=== PATIENT | female | born 1955 | race Caucasian/White ===

== ENCOUNTER 2022-06-27 13:33 | Inpatient (IN) | payer MEDICARE ==
[2022-06-27] MEDS ORDERED: Sodium Chloride 0.9% 2.5 ML Syringe FLUSH PRN (14:43)
[2022-06-27] MEDS ORDERED: Sodium Chloride 0.9% 10 ML Syringe FLUSH PRN (14:43)
[2022-06-27 15:36] LABS: CARBON DIOXIDE,CO2 22.8 mmol/L (21.0-32.0); POTASSIUM,K 3.5 mmol/L (3.5-5.1)
[2022-06-27 15:50] LABS: CORONAVIRUS COVID-19 NAA NEGATIVE (NEGATIVE); INFLUENZA A NAA POSITIVE (NEGATIVE); INFLUENZA B NAA NEGATIVE (NEGATIVE); RESPIRATORY SYNCYTIAL VIR NAA NEGATIVE (NEGATIVE)
[2022-06-27] MEDS: Sodium Chloride 0.9% 1,000 ML IV SCH (16:18)
[2022-06-27] MEDS ORDERED: Lactated Ringers 1,000 ML IV SCH (18:30)
[2022-06-27] MEDS: Pantoprazole 40 MG in Sodium Chloride 0.9% 10 ML IVPUSH SCH (18:47)
[2022-06-27] MEDS: Oseltamivir 75 MG Cap PO SCH ×2 (18:47→21:15)
[2022-06-27] MEDS: Morphine 2 MG/ML SYRINGE IVPUSH PRN (20:52)
[2022-06-27] MEDS: Enoxaparin 100 MG/1 ML Syringe SUBCUT SCH (20:52)
[2022-06-28] MEDS: Sodium Chloride 0.9% 1,000 ML IV SCH (01:54)
[2022-06-28 07:04] LABS: CARBON DIOXIDE,CO2 20.2 mmol/L (21.0-32.0); POTASSIUM,K 3.4 mmol/L (3.5-5.1)
[2022-06-28] MEDS: Ondansetron 4 MG/2 ML SDV IVPUSH PRN (08:24)
[2022-06-28] MEDS: Enoxaparin 100 MG/1 ML Syringe SUBCUT SCH ×2 (08:24→20:40)
[2022-06-28] MEDS: Oseltamivir 75 MG Cap PO SCH ×2 (08:24→20:40)
[2022-06-28] MEDS ORDERED: Polyethylene Glycol 3350 Powder 17 GM Packet PO PRN (09:15)
[2022-06-28] MEDS ORDERED: Acetaminophen 325 MG Tab PO PRN (09:15)
[2022-06-28] MEDS ORDERED: Potassium Chloride 20 MEQ Tab.ER PO ONE (09:30)
[2022-06-28] MEDS ORDERED: Lactated Ringers 1,000 ML IV ONE ×3 (10:45→18:45)
[2022-06-28] MEDS: Morphine 2 MG/ML SYRINGE IVPUSH PRN (17:42)
[2022-06-28] MEDS: Pantoprazole 40 MG in Sodium Chloride 0.9% 10 ML IVPUSH SCH (17:48)
[2022-06-28 18:15] LABS: CARBON DIOXIDE,CO2 20.9 mmol/L (21.0-32.0); POTASSIUM,K 4.3 mmol/L (3.5-5.1)
[2022-06-28] MEDS: Lactated Ringers 1,000 ML IV SCH (19:59)
[2022-06-29] MEDS: Lactated Ringers 1,000 ML IV SCH ×5 (01:08→22:09)
[2022-06-29] MEDS: Morphine 2 MG/ML SYRINGE IVPUSH PRN ×3 (02:09→18:20)
[2022-06-29] MEDS: Levothyroxine 125 MCG Tab PO SCH (06:29)
[2022-06-29 07:21] LABS: CARBON DIOXIDE,CO2 22.5 mmol/L (21.0-32.0); POTASSIUM,K 4.5 mmol/L (3.5-5.1)
[2022-06-29] MEDS: Enoxaparin 100 MG/1 ML Syringe SUBCUT SCH (09:00)
[2022-06-29] MEDS ORDERED: Lactated Ringers 1,000 ML IV SCH (09:45)
[2022-06-29] MEDS: Oseltamivir 75 MG Cap PO SCH ×2 (09:58→19:59)
[2022-06-29] MEDS: Albuterol/Ipratropium 3.0-0.5 MG/3 ML Neb Soln NEB PRN ×2 (16:22→22:09)
[2022-06-29 17:11] LABS: CARBON DIOXIDE,CO2 22.3 mmol/L (21.0-32.0); POTASSIUM,K 4.3 mmol/L (3.5-5.1)
[2022-06-29] MEDS ORDERED: Furosemide 40 MG/4 ML VIAL IVPUSH ONE (17:46)
[2022-06-29] MEDS: Pantoprazole 40 MG in Sodium Chloride 0.9% 10 ML IVPUSH SCH (18:08)
[2022-06-29] MEDS ORDERED: Heparin Sodium 5,000 Units/ML Vial SUBCUT SCH (20:00)
[2022-06-30] MEDS: Lactated Ringers 1,000 ML IV SCH ×4 (02:17→17:44)
[2022-06-30] MEDS: Morphine 2 MG/ML SYRINGE IVPUSH PRN ×2 (02:21→18:28)
[2022-06-30] MEDS ORDERED: Furosemide 40 MG/4 ML VIAL IVPUSH ONE (03:02)
[2022-06-30] MEDS: Levothyroxine 125 MCG Tab PO SCH (06:36)
[2022-06-30] MEDS ORDERED: Lactated Ringers 1,000 ML IV SCH (06:50)
[2022-06-30 08:01] LABS: CARBON DIOXIDE,CO2 24.7 mmol/L (21.0-32.0); POTASSIUM,K 3.8 mmol/L (3.5-5.1)
[2022-06-30] MEDS ORDERED: Magnesium Sulfate/Water 2 GM in Premix Bag 1 BAG IV ONE (08:30)
[2022-06-30] MEDS: Oseltamivir Phosphate 30 MG Capsule PO SCH (09:05)
[2022-06-30] MEDS: Albuterol/Ipratropium 3.0-0.5 MG/3 ML Neb Soln NEB SCH ×2 (11:14→20:48)
[2022-06-30] MEDS: Pantoprazole 40 MG in Sodium Chloride 0.9% 10 ML IVPUSH SCH (18:28)
[2022-07-01] MEDS: Lactated Ringers 1,000 ML IV SCH ×3 (00:21→17:58)
[2022-07-01] MEDS: Morphine 2 MG/ML SYRINGE IVPUSH PRN (04:50)
[2022-07-01] MEDS: Levothyroxine 125 MCG Tab PO SCH ×2 (06:08→06:34)
[2022-07-01] MEDS: Oseltamivir Phosphate 30 MG Capsule PO SCH (08:50)
[2022-07-01] MEDS: Albuterol/Ipratropium 3.0-0.5 MG/3 ML Neb Soln NEB SCH ×2 (08:50→21:21)
[2022-07-01 08:53] LABS: CARBON DIOXIDE,CO2 26.9 mmol/L (21.0-32.0); POTASSIUM,K 3.4 mmol/L (3.5-5.1)
[2022-07-01] MEDS ORDERED: Potassium Chloride 20 MEQ Tab.ER PO ONE (09:24)
[2022-07-01] MEDS ORDERED: Magnesium Oxide 400 MG Tab PO ONE (09:25)
[2022-07-01] MEDS ORDERED: Lactated Ringers 1,000 ML IV SCH (16:00)
[2022-07-01] MEDS ORDERED: Furosemide 40 MG/4 ML VIAL IVPUSH ONE (16:50)
[2022-07-01] MEDS: Albuterol/Ipratropium 3.0-0.5 MG/3 ML Neb Soln NEB PRN (16:58)
[2022-07-01] MEDS: Pantoprazole 40 MG in Sodium Chloride 0.9% 10 ML IVPUSH SCH (17:37)
[2022-07-01] MEDS: oxyCODONE 5 MG Tab PO PRN (19:47)
[2022-07-02] MEDS: Lactated Ringers 1,000 ML IV SCH ×4 (00:27→23:26)
[2022-07-02] MEDS: Levothyroxine 125 MCG Tab PO SCH ×2 (06:20→06:44)
[2022-07-02] MEDS: Oseltamivir Phosphate 30 MG Capsule PO SCH ×2 (08:40→20:35)
[2022-07-02] MEDS: Lisinopril 10 MG Tab PO SCH (08:40)
[2022-07-02 08:43] LABS: CARBON DIOXIDE,CO2 30.4 mmol/L (21.0-32.0); POTASSIUM,K 3.1 mmol/L (3.5-5.1)
[2022-07-02] MEDS: oxyCODONE 5 MG Tab PO PRN (08:44)
[2022-07-02] MEDS ORDERED: Potassium Chloride 20 MEQ Tab.ER PO ONE (08:54)
[2022-07-02] MEDS ORDERED: Magnesium Oxide 400 MG Tab PO ONE (08:59)
[2022-07-02] MEDS ORDERED: NS with KCl 40mEq 1,000 ML IV ONE (09:00)
[2022-07-02] MEDS: Albuterol/Ipratropium 3.0-0.5 MG/3 ML Neb Soln NEB SCH ×2 (09:39→20:35)
[2022-07-02] MEDS: Phosphorus #1 250 MG Tab PO SCH ×3 (13:34→23:24)
[2022-07-02 14:41] LABS: CARBON DIOXIDE,CO2 33.8 mmol/L (21.0-32.0); POTASSIUM,K 3.8 mmol/L (3.5-5.1)
[2022-07-02] MEDS: Pantoprazole 40 MG in Sodium Chloride 0.9% 10 ML IVPUSH SCH (17:55)
[2022-07-02] MEDS: Ondansetron 4 MG/2 ML SDV IVPUSH PRN (23:29)
[2022-07-03] MEDS: Lactated Ringers 1,000 ML IV SCH ×3 (06:02→20:49)
[2022-07-03] MEDS: Levothyroxine 125 MCG Tab PO SCH ×2 (06:04→06:39)
[2022-07-03] MEDS: Phosphorus #1 250 MG Tab PO SCH ×4 (06:04→23:43)
[2022-07-03 07:29] LABS: CARBON DIOXIDE,CO2 30.4 mmol/L (21.0-32.0); POTASSIUM,K 3.5 mmol/L (3.5-5.1)
[2022-07-03] MEDS ORDERED: Magnesium Sulfate/Water 2 GM in Premix Bag 1 BAG IV ONE (08:10)
[2022-07-03] MEDS: Oseltamivir Phosphate 30 MG Capsule PO SCH ×2 (08:44→20:49)
[2022-07-03] MEDS: Lisinopril 10 MG Tab PO SCH (08:44)
[2022-07-03] MEDS ORDERED: Furosemide 40 MG/4 ML VIAL IVPUSH ONE (08:54)
[2022-07-03] MEDS: Albuterol/Ipratropium 3.0-0.5 MG/3 ML Neb Soln NEB SCH (10:34)
[2022-07-03] MEDS: cefTRIAXone 1 GM in Sodium Chloride 0.9% 50 ML IV SCH (11:22)
[2022-07-03 17:05] LABS: CARBON DIOXIDE,CO2 32.8 mmol/L (21.0-32.0); POTASSIUM,K 3.1 mmol/L (3.5-5.1)
[2022-07-03] MEDS: Pantoprazole 40 MG in Sodium Chloride 0.9% 10 ML IVPUSH SCH (17:37)
[2022-07-03] MEDS: Azithromycin 500 MG in Sodium Chloride 0.9% 250 ML IV SCH (17:40)
[2022-07-03] MEDS ORDERED: Magnesium Oxide 400 MG Tab PO ONE (17:45)
[2022-07-03] MEDS: Potassium Chloride 20 MEQ Tab.ER PO SCH ×2 (18:09→20:49)
[2022-07-03] MEDS ORDERED: Furosemide 40 MG Tab PO ONE (21:00)
[2022-07-03] MEDS ORDERED: Oseltamivir 75 MG Cap PO SCH (21:00)
[2022-07-04] MEDS: Lactated Ringers 1,000 ML IV SCH ×2 (03:28→11:50)
[2022-07-04] MEDS: Phosphorus #1 250 MG Tab PO SCH ×3 (06:33→18:15)
[2022-07-04] MEDS: Levothyroxine 125 MCG Tab PO SCH (06:33)
[2022-07-04 07:19] LABS: CARBON DIOXIDE,CO2 33.7 mmol/L (21.0-32.0); POTASSIUM,K 3.2 mmol/L (3.5-5.1)
[2022-07-04] MEDS ORDERED: Magnesium Oxide 400 MG Tab PO ONE (07:59)
[2022-07-04] MEDS: Potassium Chloride 20 MEQ Tab.ER PO SCH ×2 (09:15→21:18)
[2022-07-04] MEDS: Lisinopril 10 MG Tab PO SCH (09:16)
[2022-07-04] MEDS: Potassium Chloride 100 ML IV SCH ×2 (09:16→11:51)
[2022-07-04] MEDS: Oseltamivir Phosphate 30 MG Capsule PO SCH ×2 (09:16→21:17)
[2022-07-04] MEDS: cefTRIAXone 1 GM in Sodium Chloride 0.9% 50 ML IV SCH (11:18)
[2022-07-04] MEDS: Azithromycin 500 MG in Sodium Chloride 0.9% 250 ML IV SCH (16:32)
[2022-07-04] MEDS: Pantoprazole 40 MG in Sodium Chloride 0.9% 10 ML IVPUSH SCH (18:16)
[2022-07-04] MEDS: oxyCODONE 5 MG Tab PO PRN (21:53)
[2022-07-05] MEDS: Phosphorus #1 250 MG Tab PO SCH ×5 (00:59→23:05)
[2022-07-05] MEDS: Lactated Ringers 1,000 ML IV SCH ×2 (03:08→23:04)
[2022-07-05] MEDS: Levothyroxine 125 MCG Tab PO SCH ×2 (06:01→07:04)
[2022-07-05 07:10] LABS: CARBON DIOXIDE,CO2 30.4 mmol/L (21.0-32.0); POTASSIUM,K 3.7 mmol/L (3.5-5.1)
[2022-07-05] MEDS: Oseltamivir Phosphate 30 MG Capsule PO SCH ×2 (08:31→20:13)
[2022-07-05] MEDS: Potassium Chloride 20 MEQ Tab.ER PO SCH ×2 (08:31→20:12)
[2022-07-05] MEDS: Lisinopril 10 MG Tab PO SCH (08:31)
[2022-07-05] MEDS: cefTRIAXone 1 GM in Sodium Chloride 0.9% 50 ML IV SCH (09:41)
[2022-07-05] MEDS: oxyCODONE 5 MG Tab PO PRN (09:41)
[2022-07-05] MEDS ORDERED: Magnesium Sulfate/Water 2 GM/50 ML Premix Bag IV ONE (12:00)
[2022-07-05] MEDS ORDERED: Magnesium Sulfate/Water 2 GM in Premix Bag 1 BAG IV ONE (12:15)
[2022-07-05] MEDS ORDERED: Potassium Chloride 20 MEQ Tab.ER PO ONE (13:20)
[2022-07-05] MEDS: Azithromycin 500 MG in Sodium Chloride 0.9% 250 ML IV SCH (15:49)
[2022-07-05] MEDS: Pantoprazole 40 MG in Sodium Chloride 0.9% 10 ML IVPUSH SCH (17:47)
[2022-07-06] MEDS: Phosphorus #1 250 MG Tab PO SCH ×4 (06:15→23:00)
[2022-07-06] MEDS: Levothyroxine 125 MCG Tab PO SCH ×2 (06:15→07:18)
[2022-07-06 06:34] LABS: CARBON DIOXIDE,CO2 28.3 mmol/L (21.0-32.0); POTASSIUM,K 3.9 mmol/L (3.5-5.1)
[2022-07-06] MEDS ORDERED: Magnesium Sulfate/Water 2 GM in Premix Bag 1 BAG IV ONE (07:20)
[2022-07-06] MEDS: Potassium Chloride 20 MEQ Tab.ER PO SCH ×2 (08:25→21:23)
[2022-07-06] MEDS: Lisinopril 10 MG Tab PO SCH (08:25)
[2022-07-06] MEDS: Oseltamivir Phosphate 30 MG Capsule PO SCH ×2 (08:25→21:23)
[2022-07-06] MEDS: cefTRIAXone 1 GM in Sodium Chloride 0.9% 50 ML IV SCH (09:39)
[2022-07-06] MEDS: Azithromycin 500 MG in Sodium Chloride 0.9% 250 ML IV SCH (15:32)
[2022-07-06] MEDS: Pantoprazole 40 MG in Sodium Chloride 0.9% 10 ML IVPUSH SCH (17:39)
[2022-07-06] MEDS: Albuterol/Ipratropium 3.0-0.5 MG/3 ML Neb Soln NEB PRN (21:39)
[2022-07-06] MEDS: oxyCODONE 5 MG Tab PO PRN (23:00)
[2022-07-07] MEDS: Phosphorus #1 250 MG Tab PO SCH (06:30)
[2022-07-07] MEDS: Levothyroxine 125 MCG Tab PO SCH (06:31)
[2022-07-07] MEDS ORDERED: Polyethylene Glycol 3350 Powder 17 GM Packet PO PRN (07:20)
[2022-07-07 07:51] LABS: CARBON DIOXIDE,CO2 24.1 mmol/L (21.0-32.0)
[2022-07-07] MEDS: Oseltamivir Phosphate 30 MG Capsule PO SCH ×2 (09:16→21:01)
[2022-07-07] MEDS: Potassium Chloride 20 MEQ Tab.ER PO SCH (09:16)
[2022-07-07] MEDS: Lisinopril 10 MG Tab PO SCH (09:18)
[2022-07-07] MEDS: cefTRIAXone 1 GM in Sodium Chloride 0.9% 50 ML IV SCH (10:30)
[2022-07-07] MEDS: Piperacillin/Tazobactam 3.375 GM in Sodium Chloride 0.9% 50 ML IV SCH ×3 (12:34→23:14)
[2022-07-07] MEDS: Azithromycin 500 MG in Sodium Chloride 0.9% 250 ML IV SCH (17:48)
[2022-07-07] MEDS: Pantoprazole 40 MG Tab.CR PO SCH (17:49)
[2022-07-07] MEDS: Lactated Ringers 1,000 ML IV SCH (18:29)
[2022-07-07] MEDS: oxyCODONE 5 MG Tab PO PRN (21:53)
[2022-07-08] MEDS: Piperacillin/Tazobactam 3.375 GM in Sodium Chloride 0.9% 50 ML IV SCH (06:52)
[2022-07-08 07:50] LABS: CARBON DIOXIDE,CO2 23.6 mmol/L (21.0-32.0); POTASSIUM,K 3.7 mmol/L (3.5-5.1)
[2022-07-08] MEDS: Levothyroxine 125 MCG Tab PO SCH (07:50)
[2022-07-08] MEDS: Lisinopril 10 MG Tab PO SCH (08:52)
[2022-07-08] MEDS: Vancomycin 125 MG Cap PO SCH ×4 (10:39→23:40)
[2022-07-08] MEDS: Lactated Ringers 1,000 ML IV SCH (15:58)
[2022-07-08] MEDS: Pantoprazole 40 MG Tab.CR PO SCH (17:01)
[2022-07-08] MEDS: oxyCODONE 5 MG Tab PO PRN (20:58)
[2022-07-09] MEDS: Levothyroxine 125 MCG Tab PO SCH ×2 (06:16→06:52)
[2022-07-09] MEDS: Vancomycin 125 MG Cap PO SCH ×4 (06:16→23:09)
[2022-07-09 08:03] LABS: CARBON DIOXIDE,CO2 24.2 mmol/L (21.0-32.0); POTASSIUM,K 3.3 mmol/L (3.5-5.1)
[2022-07-09] MEDS: Lisinopril 10 MG Tab PO SCH (08:39)
[2022-07-09] MEDS ORDERED: Potassium Chloride 20 MEQ Tab.ER PO ONE (08:52)
[2022-07-09] MEDS: oxyCODONE 5 MG Tab PO PRN (21:12)
[2022-07-10] MEDS: Levothyroxine 125 MCG Tab PO SCH (06:30)
[2022-07-10] MEDS: Vancomycin 125 MG Cap PO SCH ×2 (06:30→11:34)
[2022-07-10 08:04] LABS: CARBON DIOXIDE,CO2 24.8 mmol/L (21.0-32.0); POTASSIUM,K 3.8 mmol/L (3.5-5.1)
[2022-07-10] MEDS: Lisinopril 10 MG Tab PO SCH (08:50)
[2022-07-10] MEDS ORDERED: Magnesium Sulfate/Water 2 GM in Premix Bag 1 BAG IV ONE (11:07)
[2022-07-10] MEDS ORDERED: Magnesium Oxide 400 MG Tab PO ONE (11:29)
== END 2022-07-10 13:00 | disposition home health service (06) | DRG 564 ==
LOC: MW.ED 13:33 → MW.MS 18:23
PROVIDERS: ADMIT Student in an Organized Health Care Education/Training Program; ATTEND Student in an Organized Health Care Education/Training Program
DX: T79.6XXA Traumatic ischemia of muscle, initial encounter (principal); J10.00 Influenza due to other identified influenza virus with unspecified type of pneumonia; N17.9 Acute kidney failure, unspecified; N39.0 Urinary tract infection, site not specified; A04.72 Enterocolitis due to Clostridium difficile, not specified as recurrent; D64.9 Anemia, unspecified; F17.200 Nicotine dependence, unspecified, uncomplicated; Z20.822 Contact with and (suspected) exposure to COVID-19; I10 Essential (primary) hypertension; E61.1 Iron deficiency; M79.81 Nontraumatic hematoma of soft tissue; Z79.899 Other long term (current) drug therapy
CPT/HCPCS: 0241U; 36415; 36430; 36600; 51702; 70450; 70450-26; 71045; 71045-26; 74176; 74176-26; 80048; 80053; 81001; 82550; 82728; 82803; 83550; 83605; 83735; 84100; 84484; 85014; 85018; 85025; 85610; 85730; 86850; 86900; 86901; 86920; 87040; 87045; 87046; 87086; 87324; 87328; 87329; 87449; 87641; 87899; 93005; 93306; 94640; 97110-GP; 97163-GP; 97530-GP; 99221; 99231; 99232; 99239; A9270-GY; C9113; J0456; J0696; J1650; J1940; J2270; J2405; J2543; J3475; J3480; J3490; J7030; J7050; J7120; J7620-GY; P9016; Q0138

== ENCOUNTER 2022-11-02 10:06 | Inpatient (IN) | payer MEDICARE ==
[2022-11-02] MEDS ORDERED: Morphine 4 MG/ML Syringe IVPUSH ONE ×2 (10:28→12:50)
[2022-11-02] MEDS ORDERED: Ondansetron 4 MG/2 ML SDV IVPUSH ONE (10:28)
[2022-11-02] MEDS ORDERED: Sodium Chloride 0.9% 1,000 ML IV ONE ×2 (10:28→11:58)
[2022-11-02 11:42] LABS: BLOOD UREA NITROGEN,BUN 20 mg/dL (7.0-18.0); CARBON DIOXIDE,CO2 26.1 mmol/L (21.0-32.0); CHLORIDE,CL 97 mmol/L (98-107); GLUCOSE RANDOM 130 mg/dL (74-106); POTASSIUM,K 3.2 mmol/L (3.5-5.1); SODIUM,NA 134 mmol/L (136-145)
[2022-11-02 11:52] LABS: ESTIMATED GFR 81 mL/min (>60)
[2022-11-02] MEDS ORDERED: Piperacillin/Tazobactam 3.375 GM in Sodium Chloride 0.9% 100 ML IV ONE (12:49)
[2022-11-02] MEDS ORDERED: Iopamidol 755 MG/ML 500 ML Multipack Bottle IVPUSH ONE (13:34)
[2022-11-02 15:18] LABS: BILIRUBIN INDIRECT 1.9
[2022-11-02] MEDS ORDERED: Docusate Sodium 100 MG Cap PO PRN (16:13)
[2022-11-02] MEDS ORDERED: Ondansetron 4 MG/2 ML SDV IVPUSH PRN (16:13)
[2022-11-02] MEDS ORDERED: Morphine 2 MG/ML SYRINGE IVPUSH PRN (16:13)
[2022-11-02] MEDS ORDERED: Sodium Chloride 0.9% 10 ML Syringe FLUSH PRN (16:15)
[2022-11-02] MEDS ORDERED: Sodium Chloride 0.9% 2.5 ML Syringe FLUSH PRN (16:15)
[2022-11-02] MEDS ORDERED: Magnesium Sulfate/Water 2 GM in Premix Bag 1 BAG IV ONE (16:45)
[2022-11-02] MEDS: Sodium Chloride 0.9% 1,000 ML IV SCH ×2 (17:18→23:41)
[2022-11-02] MEDS: Pantoprazole 40 MG in Sodium Chloride 0.9% 10 ML IVPUSH SCH (17:20)
[2022-11-02] MEDS: Potassium Chloride 20 MEQ in Premix Bag 1 BAG IV SCH ×2 (18:28→21:50)
[2022-11-02] MEDS ORDERED: diphenhydrAMINE 25 MG Cap PO ONE (22:57)
[2022-11-03] MEDS: Piperacillin/Tazobactam 3.375 GM in Sodium Chloride 0.9% 100 ML IV SCH ×5 (00:14→23:29)
[2022-11-03] MEDS ORDERED: Sodium Chloride 0.9% 500 ML IV ONE (01:29)
[2022-11-03] MEDS: Sodium Chloride 0.9% 1,000 ML IV SCH ×4 (04:00→19:32)
[2022-11-03 07:19] LABS: CARBON DIOXIDE,CO2 24.2 mmol/L (21.0-32.0); POTASSIUM,K 3.3 mmol/L (3.5-5.1)
[2022-11-03] MEDS ORDERED: diphenhydrAMINE 25 MG Cap PO PRN (09:30)
[2022-11-03] MEDS: Pantoprazole 40 MG in Sodium Chloride 0.9% 10 ML IVPUSH SCH (16:17)
[2022-11-04] MEDS: Sodium Chloride 0.9% 1,000 ML IV SCH ×2 (02:10→09:15)
[2022-11-04] MEDS: Levothyroxine 75 MCG Tab PO SCH ×2 (06:06→07:50)
[2022-11-04] MEDS: Piperacillin/Tazobactam 3.375 GM in Sodium Chloride 0.9% 100 ML IV SCH ×3 (06:07→17:48)
[2022-11-04 06:35] LABS: CARBON DIOXIDE,CO2 24.6 mmol/L (21.0-32.0); POTASSIUM,K 3.3 mmol/L (3.5-5.1)
[2022-11-04] MEDS: Potassium Chloride 20 MEQ Tab.ER PO SCH ×2 (08:23→15:47)
[2022-11-04] MEDS: Phosphorus #1 250 MG Tab PO SCH ×3 (09:13→17:48)
[2022-11-04] MEDS: hydrOXYzine HCl 25 MG Tab PO PRN ×2 (09:14→16:46)
[2022-11-04] MEDS: Heparin Sodium 5,000 Units/ML Vial SUBCUT SCH ×2 (10:19→21:12)
[2022-11-04] MEDS: Pantoprazole 40 MG in Sodium Chloride 0.9% 10 ML IVPUSH SCH (15:47)
[2022-11-05] MEDS: Piperacillin/Tazobactam 3.375 GM in Sodium Chloride 0.9% 100 ML IV SCH ×5 (01:34→23:22)
[2022-11-05] MEDS: hydrOXYzine HCl 25 MG Tab PO PRN ×3 (01:35→19:57)
[2022-11-05] MEDS: Phosphorus #1 250 MG Tab PO SCH ×2 (01:35→06:19)
[2022-11-05] MEDS: Levothyroxine 88 MCG Tab PO SCH ×2 (06:19→07:39)
[2022-11-05 09:05] LABS: CARBON DIOXIDE,CO2 25.3 mmol/L (21.0-32.0); POTASSIUM,K 3.5 mmol/L (3.5-5.1)
[2022-11-05] MEDS: Potassium Chloride 20 MEQ Tab.ER PO SCH ×2 (09:08→16:12)
[2022-11-05] MEDS: Heparin Sodium 5,000 Units/ML Vial SUBCUT SCH ×3 (09:09→20:44)
[2022-11-05] MEDS: Acidophilus with Citrus Pectin/L.acidophilus Tab PO SCH (11:26)
[2022-11-05] MEDS: Pantoprazole 40 MG in Sodium Chloride 0.9% 10 ML IVPUSH SCH (16:12)
[2022-11-06] MEDS: Piperacillin/Tazobactam 3.375 GM in Sodium Chloride 0.9% 100 ML IV SCH (06:04)
[2022-11-06] MEDS: Levothyroxine 88 MCG Tab PO SCH ×2 (06:04→06:33)
[2022-11-06 06:05] LABS: CARBON DIOXIDE,CO2 27.4 mmol/L (21.0-32.0); POTASSIUM,K 3.8 mmol/L (3.5-5.1)
[2022-11-06] MEDS: hydrOXYzine HCl 25 MG Tab PO PRN (06:07)
[2022-11-06] MEDS: Potassium Chloride 20 MEQ Tab.ER PO SCH (08:18)
[2022-11-06] MEDS: Acidophilus with Citrus Pectin/L.acidophilus Tab PO SCH (08:18)
[2022-11-06] MEDS ORDERED: Levofloxacin 750 MG Tab PO SCH (08:30)
[2022-11-06] MEDS: Heparin Sodium 5,000 Units/ML Vial SUBCUT SCH (09:20)
== END 2022-11-06 14:00 | disposition home or self-care (01) | DRG 919 ==
LOC: MW.ED 10:06 → MW.MS 16:03
PROVIDERS: ADMIT Hospitalist; ATTEND Hospitalist
DX: T85.79XA Infection and inflammatory reaction due to other internal prosthetic devices, implants and grafts, initial encounter (principal); K85.80 Other acute pancreatitis without necrosis or infection; C25.9 Malignant neoplasm of pancreas, unspecified; R78.81 Bacteremia; F17.210 Nicotine dependence, cigarettes, uncomplicated; E86.0 Dehydration; I95.9 Hypotension, unspecified; E03.9 Hypothyroidism, unspecified; M19.90 Unspecified osteoarthritis, unspecified site; B96.20 Unspecified Escherichia coli [E. coli] as the cause of diseases classified elsewhere; D64.9 Anemia, unspecified; E80.6 Other disorders of bilirubin metabolism; Y83.8 Other surgical procedures as the cause of abnormal reaction of the patient, or of later complication, without mention of misadventure at the time of the procedure; Z98.890 Other specified postprocedural states; Z79.890 Hormone replacement therapy
CPT/HCPCS: 36415; 71045; 71045-26; 74177; 74177-26; 80053; 81001; 82247; 82248; 83605; 83690; 83735; 83880; 84100; 84484; 85025; 87040; 87077; 87086; 87186; 93005; 99222; 99232; 99238; A9270-GY; C9113; J1644; J2270; J2405; J2543; J3475; J3480; J3490; J7030; Q9967

== ENCOUNTER 2022-12-04 06:44 | Day surgery (SDC) | payer MEDICARE ==
[~2022-12-04 06:44] MED LIST: Lactated Ringers 1,000 ML IV SCH
[2022-12-04] MEDS ORDERED: Ondansetron 4 MG/2 ML SDV ONE (06:51)
[2022-12-04] MEDS ORDERED: Lidocaine 2% 5 ML SDV ONE (06:51)
[2022-12-04] MEDS ORDERED: fentaNYL 100 MCG/2 ML SDV ONE (06:52)
[2022-12-04] MEDS ORDERED: Propofol 200 MG/20 ML SDV ONE (06:52)
[2022-12-04] MEDS ORDERED: Metoclopramide 10 MG/2 ML SDV IVPUSH PRN (06:58)
[2022-12-04] MEDS ORDERED: Naloxone 0.4 MG/ML SDV IVPUSH PRN (06:58)
[2022-12-04] MEDS ORDERED: droPERidol 5 MG/2 ML SDV IVPUSH PRN (06:58)
[2022-12-04] MEDS ORDERED: fentaNYL 50 MCG/ML SDV IVPUSH PRN (06:58)
[2022-12-04] MEDS ORDERED: Ondansetron 4 MG/2 ML SDV IVPUSH PRN (06:58)
[2022-12-04] MEDS ORDERED: Morphine 2 MG/ML SYRINGE IVPUSH PRN (06:58)
[2022-12-04] MEDS ORDERED: Albuterol 0.083% 2.5 MG/3 ML Neb Soln NEB PRN (06:58)
[2022-12-04] MEDS ORDERED: HYDROmorphone 1 MG/ML Syringe IVPUSH PRN (06:58)
[2022-12-04 07:11] LABS: BASOPHILS ABSOLUTE AUTO 0.1 K/uL (0.0-0.1); BASOPHILS PERCENT AUTO 0.9 % (0.0-1.5); EOSINOPHILS ABSOLUTE AUTO 0.3 K/uL (0.0-0.7); EOSINOPHILS PERCENT AUTO 3.3 % (0.0-7.0); HEMATOCRIT 35.3 % (36.0-46.0); HEMOGLOBIN 11.7 g/dL (12.0-16.0); LYMPHOCYTES ABSOLUTE AUTO 3.3 K/uL (0.6-2.4); LYMPHOCYTES PERCENT AUTO 35.8 % (16.0-40.0); MEAN CORPUSCULAR HGB CONC 33.1 g/dL (31.0-37.0); MEAN CORPUSCULAR VOLUME 93.6 fL (80.0-98.0); MONOCYTES ABSOLUTE AUTO 0.8 K/uL (0.0-0.8); MONOCYTES PERCENT AUTO 8.3 % (0.0-15.0); NEUTROPHILS ABSOLUTE AUTO 4.8 K/uL (1.4-5.7); NEUTROPHILS PERCENT AUTO 51.7 % (48.0-80.0); NRBC ABSOLUTE 0 K/uL; PLATELET COUNT,PLT 210 K/uL (150-400); RED BLOOD CELL COUNT 3.77 M/uL (4.30-5.90); WHITE BLOOD CELL COUNT,WBC 9.23 K/uL (4.0-11.0)
[2022-12-04] MEDS ORDERED: Heparin Sodium 100 Units/ML 3 ML Syringe ONE (07:30)
[2022-12-04] MEDS ORDERED: Lidocaine 1% 20 ML MDV ONE (07:30)
[2022-12-04] MEDS ORDERED: Bupivacaine 0.5% 30 ML SDV ONE (07:30)
[2022-12-04 07:32] LABS: A/G RATIO 0.7 (0.9-1.6); ALBUMIN 3.2 g/dL (3.4-5.0); BILIRUBIN TOTAL 1.5 mg/dL (0.2-1.0); CALCIUM 9.2 mg/dL (8.5-10.1); CARBON DIOXIDE,CO2 27.6 mmol/L (21.0-32.0); CREATININE 0.8 mg/dL (0.6-1.0); EST CRCL DRUG DOSING (CG) 58.93 mL/min; POTASSIUM,K 3.9 mmol/L (3.5-5.1); PROTEIN TOTAL,TP 7.8 g/dL (6.4-8.2)
[2022-12-04 07:52] LABS: CARCINOEMBRYONIC ANTIGEN,CEA 2.8 ng/mL
[2022-12-04] MEDS ORDERED: ePHEDrine 50 MG/ML SDV ONE (08:09)
[2022-12-04] MEDS ORDERED: Vasopressin 20 Units/1 ML MDV ONE (08:15)
[2022-12-04] MEDS ORDERED: Dexamethasone 4 MG/ML 5 ML MDV ONE (08:20)
[2022-12-04] MEDS ORDERED: ceFAZolin 1 GM Vial ONE (08:23)
[2022-12-04] MEDS ORDERED: ceFAZolin 2 GM in Sodium Chloride 0.9% 50 ML IV ONE (15:44)
== END 2022-12-04 10:25 | disposition home or self-care (01) ==
LOC: MW.SDS 06:44
PROVIDERS: ATTEND Surgery
DX: C25.0 Malignant neoplasm of head of pancreas (principal); D62 Acute posthemorrhagic anemia; I10 Essential (primary) hypertension; E03.9 Hypothyroidism, unspecified; D50.9 Iron deficiency anemia, unspecified; R17 Unspecified jaundice; Z79.890 Hormone replacement therapy; F17.210 Nicotine dependence, cigarettes, uncomplicated
CPT/HCPCS: 36415; 36561; 71045; 76000; 80053; 82378; 85025; J0690; J1100; J1642; J2704; J3010; J3490; J7120; C1788; J2405

== ENCOUNTER 2023-01-05 17:18 | Inpatient (IN) | payer MEDICARE ==
[2023-01-05] MEDS ORDERED: Sodium Chloride 0.9% 2.5 ML Syringe FLUSH PRN (17:24)
[2023-01-05] MEDS ORDERED: Sodium Chloride 0.9% 10 ML Syringe FLUSH PRN (17:24)
[2023-01-05 17:51] LABS: HEMOGLOBIN 12.1 g/dL (12.0-16.0); MEAN CORPUSCULAR HGB CONC 33.6 g/dL (31.0-37.0); MEAN CORPUSCULAR VOLUME 92.3 fL (80.0-98.0); NRBC ABSOLUTE 0 K/uL; PLATELET COUNT,PLT 243 K/uL (150-400); WHITE BLOOD CELL COUNT,WBC 23.78 K/uL (4.0-11.0)
[2023-01-05] MEDS ORDERED: Sodium Chloride 0.9% 1,000 ML IV STA (18:03)
[2023-01-05 18:19] LABS: A/G RATIO 0.9 (0.9-1.6); BILIRUBIN TOTAL 0.4 mg/dL (0.2-1.0); CALCIUM 8.1 mg/dL (8.5-10.1); CARBON DIOXIDE,CO2 20.3 mmol/L (21.0-32.0); CREATININE 0.9 mg/dL (0.6-1.0); EST CRCL DRUG DOSING (CG) 52.38 mL/min; POTASSIUM,K 2.7 mmol/L (3.5-5.1); PROTEIN TOTAL,TP 6.3 g/dL (6.4-8.2)
[2023-01-05 18:21] LABS: BAND ABSOLUTE MAN 1.7; BAND PERCENT MAN 7 %; LYMPHOCYTES ABSOLUTE MAN 1.7 (0.6-2.4); LYMPHOCYTES PERCENT MAN 7 % (16.0-40.0); MONOCYTES ABSOLUTE MAN 0.7 (0.0-0.8); MONOCYTES PERCENT MAN 3 % (0.0-15.0); SEG NEUTROPHILS ABSOLUTE MAN 19.7 (1.4-5.7); SEG NEUTROPHILS PERCENT MAN 83 % (48.0-80.0)
[2023-01-05 18:25] LABS: MAGNESIUM 1.5 mg/dL (1.8-2.4)
[2023-01-05] MEDS ORDERED: Magnesium Sulfate/Water 4 GM in Premix Bag 1 BAG IV STA (18:33)
[2023-01-05] MEDS ORDERED: Potassium Chloride 20 MEQ Tab.ER PO STA (18:35)
[2023-01-05] MEDS ORDERED: Sodium Chloride 0.9% 750 ML IV ONE (18:45)
[2023-01-05] MEDS: Potassium Chloride 20 MEQ in Premix Bag 1 BAG IV SCH ×2 (19:18→22:08)
[2023-01-05 19:21] LABS: BASE EXCESS VENOUS -4.7 (-2.0-3.0); BICARBONATE,VENOUS 23 mEq/L (23-28); PCO2 VENOUS 52 mmHG (41-51); PH,VENOUS 7.25 (7.31-7.41)
[2023-01-05 19:22] LABS: PO2 VENOUS < 30 mmHG
[2023-01-05 20:02] LABS: APPEARANCE,URINE CLEAR; BILIRUBIN,URINE NEGATIVE (NEGATIVE); COLOR,URINE YELLOW; GLUCOSE,URINE 500 mg/dL (NEGATIVE); KETONES,URINE NEGATIVE (NEGATIVE); LEUKOCYTE ESTERASE,URINE NEGATIVE (NEGATIVE); NITRITE,URINE NEGATIVE (NEGATIVE); OCCULT BLOOD,URINE NEGATIVE (NEGATIVE); PROTEIN,URINE NEGATIVE (NEGATIVE); UROBILINOGEN,URINE 0.2 EU/dL (<2.0)
[2023-01-05] MEDS ORDERED: Iopamidol 755 MG/ML 500 ML Multipack Bottle IVPUSH ONE (21:37)
[2023-01-05] MEDS ORDERED: Cefepime 2 GM in Sodium Chloride 0.9% 50 ML IV STA (23:38)
[2023-01-06] MEDS: Potassium Chloride 20 MEQ in Premix Bag 1 BAG IV SCH (00:47)
[2023-01-06] MEDS: Sodium Chloride 0.9% 1,000 ML IV SCH ×3 (01:28→19:38)
[2023-01-06] MEDS ORDERED: Sodium Chloride 0.9% 1,000 ML IV ONE (02:33)
[2023-01-06] MEDS: Norepinephrine Bit/D5W Premix 250 ML IV SCH (04:02)
[2023-01-06 04:04] LABS: HEMATOCRIT 30.7 % (36.0-46.0); HEMOGLOBIN 10.4 g/dL (12.0-16.0); MEAN CORPUSCULAR HEMOGLOBIN 31.3 pg (27.0-32.0); MEAN CORPUSCULAR HGB CONC 33.9 g/dL (31.0-37.0); MEAN CORPUSCULAR VOLUME 92.5 fL (80.0-98.0); NRBC ABSOLUTE 0 K/uL; RED BLOOD CELL COUNT 3.32 M/uL (4.30-5.90); WHITE BLOOD CELL COUNT,WBC 21.72 K/uL (4.0-11.0)
[2023-01-06 04:23] LABS: CALCIUM 7.5 mg/dL (8.5-10.1); CARBON DIOXIDE,CO2 19.3 mmol/L (21.0-32.0); CREATININE 0.7 mg/dL (0.6-1.0); EST CRCL DRUG DOSING (CG) 67.34 mL/min; POTASSIUM,K 4.5 mmol/L (3.5-5.1)
[2023-01-06 04:28] LABS: MAGNESIUM 2.6 mg/dL (1.8-2.4); PHOSPHORUS 2.5 mg/dL (2.6-4.7)
[2023-01-06] MEDS: Vancomycin 1.25 GM SDV ONE ×2 (04:30→05:09)
[2023-01-06] MEDS: Sodium Chloride 0.9% 250 ML ONE ×2 (04:31→05:08)
[2023-01-06] MEDS: VANCOmycin 1.25 GM/250 ML 250 ML IV ONE ×2 (04:32→04:34)
[2023-01-06 04:33] LABS: BAND PERCENT MAN 23 %; SEG NEUTROPHILS PERCENT MAN 69 % (48.0-80.0)
[2023-01-06 04:34] LABS: LYMPHOCYTES ABSOLUTE MAN 0.9 (0.6-2.4); LYMPHOCYTES PERCENT MAN 4 % (16.0-40.0); METAMYELOCYTE ABSOLUTE MAN 0.2; METAMYELOCYTE PERCENT MAN 1 %; MONOCYTES ABSOLUTE MAN 0.7 (0.0-0.8); MONOCYTES PERCENT MAN 3 % (0.0-15.0)
[2023-01-06 04:36] LABS: PLATELET COUNT,PLT 135 K/uL (150-400)
[2023-01-06] MEDS: Levothyroxine 75 MCG Tab PO SCH (07:38)
[2023-01-06] MEDS: Phosphorus #1 250 MG Tab PO SCH ×4 (08:48→23:51)
[2023-01-06] MEDS ORDERED: Cefepime 2 GM in Sodium Chloride 0.9% 50 ML IV SCH (11:00)
[2023-01-06] MEDS: Cefepime 2 GM in Sodium Chloride 0.9% 50 ML IV SCH ×2 (12:28→23:52)
[2023-01-06] MEDS: Heparin Sodium 5,000 Units/ML Vial SUBCUT SCH (13:32)
[2023-01-06] MEDS ORDERED: Loperamide 2 MG Cap PO ONE (23:07)
[2023-01-06] MEDS: Calcium Carbonate 500 MG Tab.Chew PO PRN (23:52)
[2023-01-07] MEDS: Heparin Sodium 5,000 Units/ML Vial SUBCUT SCH ×2 (02:09→14:16)
[2023-01-07] MEDS: Sodium Chloride 0.9% 1,000 ML IV SCH ×3 (04:50→21:37)
[2023-01-07 06:22] LABS: HEMATOCRIT 30.4 % (36.0-46.0); HEMOGLOBIN 10.1 g/dL (12.0-16.0); MEAN CORPUSCULAR HEMOGLOBIN 31.4 pg (27.0-32.0); MEAN CORPUSCULAR HGB CONC 33.2 g/dL (31.0-37.0); MEAN CORPUSCULAR VOLUME 94.4 fL (80.0-98.0); NRBC ABSOLUTE 0 K/uL; RED BLOOD CELL COUNT 3.22 M/uL (4.30-5.90); WHITE BLOOD CELL COUNT,WBC 30.01 K/uL (4.0-11.0)
[2023-01-07 06:28] LABS: CALCIUM 7.2 mg/dL (8.5-10.1); CARBON DIOXIDE,CO2 20.1 mmol/L (21.0-32.0); CREATININE 0.7 mg/dL (0.6-1.0); EST CRCL DRUG DOSING (CG) 67.34 mL/min; PHOSPHORUS 3.3 mg/dL (2.6-4.7); POTASSIUM,K 3.7 mmol/L (3.5-5.1)
[2023-01-07] MEDS: Phosphorus #1 250 MG Tab PO SCH (06:33)
[2023-01-07 07:06] LABS: PLATELET COUNT,PLT 180 K/uL (150-400); SEG NEUTROPHILS ABSOLUTE MAN 24.6 (1.4-5.7); SEG NEUTROPHILS PERCENT MAN 82 % (48.0-80.0)
[2023-01-07 07:07] LABS: BAND ABSOLUTE MAN 4.2; BAND PERCENT MAN 14 %; LYMPHOCYTES ABSOLUTE MAN 1.2 (0.6-2.4); LYMPHOCYTES PERCENT MAN 4 % (16.0-40.0)
[2023-01-07] MEDS: Levothyroxine 75 MCG Tab PO SCH (07:43)
[2023-01-07] MEDS: Pantoprazole 40 MG Tab.CR PO SCH (07:43)
[2023-01-07] MEDS: Norepinephrine Bit/D5W Premix 250 ML IV SCH (07:47)
[2023-01-07] MEDS: Cefepime 2 GM in Sodium Chloride 0.9% 50 ML IV SCH ×2 (09:51→17:34)
[2023-01-07] MEDS: Loperamide 2 MG Cap PO PRN ×5 (10:34→19:59)
[2023-01-07] MEDS ORDERED: Sodium Chloride 0.9% 1,000 ML IV ONE ×2 (10:51→16:22)
[2023-01-07] MEDS ORDERED: Acetaminophen 325 MG Tab PO PRN (16:12)
[2023-01-08] MEDS: Heparin Sodium 5,000 Units/ML Vial SUBCUT SCH (00:38)
[2023-01-08] MEDS: Calcium Carbonate 500 MG Tab.Chew PO PRN ×2 (00:42→14:16)
[2023-01-08] MEDS: Cefepime 2 GM in Sodium Chloride 0.9% 50 ML IV SCH ×3 (01:44→17:34)
[2023-01-08] MEDS: Pantoprazole 40 MG Tab.CR PO SCH (06:31)
[2023-01-08] MEDS: Levothyroxine 75 MCG Tab PO SCH (06:32)
[2023-01-08] MEDS: Sodium Chloride 0.9% 1,000 ML IV SCH ×2 (06:39→15:45)
[2023-01-08 07:25] LABS: CALCIUM 6.9 mg/dL (8.5-10.1); MAGNESIUM 1.6 mg/dL (1.8-2.4); PHOSPHORUS 2.5 mg/dL (2.6-4.7)
[2023-01-08 08:13] LABS: HEMATOCRIT 29.7 % (36.0-46.0); HEMOGLOBIN 10.1 g/dL (12.0-16.0); MEAN CORPUSCULAR HEMOGLOBIN 31.3 pg (27.0-32.0); NRBC ABSOLUTE 0 K/uL; RED BLOOD CELL COUNT 3.23 M/uL (4.30-5.90); WHITE BLOOD CELL COUNT,WBC 2.37 K/uL (4.0-11.0)
[2023-01-08 08:31] LABS: CARBON DIOXIDE,CO2 21.2 mmol/L (21.0-32.0); CREATININE 0.7 mg/dL (0.6-1.0); EST CRCL DRUG DOSING (CG) 67.34 mL/min
[2023-01-08 08:41] LABS: POTASSIUM,K 2.1 mmol/L (3.5-5.1)
[2023-01-08 08:44] LABS: PLATELET COUNT,PLT 69 K/uL (150-400)
[2023-01-08 08:47] LABS: BAND ABSOLUTE MAN 0.2; BAND PERCENT MAN 8 %; LYMPHOCYTES ABSOLUTE MAN 0.7 (0.6-2.4); LYMPHOCYTES PERCENT MAN 28 % (16.0-40.0); SEG NEUTROPHILS ABSOLUTE MAN 1.6 (1.4-5.7); SEG NEUTROPHILS PERCENT MAN 66 % (48.0-80.0)
[2023-01-08] MEDS: Loperamide 2 MG Cap PO PRN ×4 (08:47→23:48)
[2023-01-08] MEDS: Potassium Chloride 20 MEQ in Premix Bag 1 BAG IV SCH ×2 (09:16→11:25)
[2023-01-08] MEDS: Potassium Chloride 10 MEQ Tab.ER PO SCH ×2 (09:45→13:08)
[2023-01-08] MEDS: Phosphorus #1 250 MG Tab PO SCH ×3 (11:26→23:48)
[2023-01-08] MEDS ORDERED: Potassium Chloride 10 MEQ Tab.ER PO ONE (13:56)
[2023-01-09] MEDS: Cefepime 2 GM in Sodium Chloride 0.9% 50 ML IV SCH ×3 (01:07→17:21)
[2023-01-09] MEDS: Sodium Chloride 0.9% 1,000 ML IV SCH ×3 (01:10→19:48)
[2023-01-09] MEDS: Loperamide 2 MG Cap PO PRN ×3 (04:45→23:55)
[2023-01-09 06:30] LABS: HEMATOCRIT 28.4 % (36.0-46.0); HEMOGLOBIN 9.4 g/dL (12.0-16.0); MEAN CORPUSCULAR HGB CONC 33.1 g/dL (31.0-37.0); MEAN CORPUSCULAR VOLUME 93.7 fL (80.0-98.0); NRBC ABSOLUTE 0 K/uL; RED BLOOD CELL COUNT 3.03 M/uL (4.30-5.90); WHITE BLOOD CELL COUNT,WBC 1.84 K/uL (4.0-11.0)
[2023-01-09] MEDS: Phosphorus #1 250 MG Tab PO SCH ×4 (06:40→23:55)
[2023-01-09] MEDS: Levothyroxine 75 MCG Tab PO SCH (06:41)
[2023-01-09] MEDS: Pantoprazole 40 MG Tab.CR PO SCH (06:41)
[2023-01-09 06:55] LABS: CALCIUM 7.1 mg/dL (8.5-10.1); CARBON DIOXIDE,CO2 19.8 mmol/L (21.0-32.0); CREATININE 0.6 mg/dL (0.6-1.0); EST CRCL DRUG DOSING (CG) 78.57 mL/min; MAGNESIUM 1.5 mg/dL (1.8-2.4); PHOSPHORUS 2.2 mg/dL (2.6-4.7); POTASSIUM,K 3.5 mmol/L (3.5-5.1)
[2023-01-09 07:25] LABS: PLATELET COUNT,PLT 81 K/uL (150-400)
[2023-01-09 07:32] LABS: BAND ABSOLUTE MAN 0; BAND PERCENT MAN 1 %; EOSINOPHILS PERCENT MAN 1 % (0.0-7.0); LYMPHOCYTES ABSOLUTE MAN 1.3 (0.6-2.4); LYMPHOCYTES PERCENT MAN 73 % (16.0-40.0); SEG NEUTROPHILS ABSOLUTE MAN 0.4 (1.4-5.7); SEG NEUTROPHILS PERCENT MAN 24 % (48.0-80.0)
[2023-01-09 07:33] LABS: METAMYELOCYTE ABSOLUTE MAN 0; METAMYELOCYTE PERCENT MAN 1 %
[2023-01-09] MEDS: Potassium Chloride 10 MEQ Tab.ER PO SCH ×2 (09:04→12:16)
[2023-01-09] MEDS ORDERED: Magnesium Sulfate/Water 2 GM in Premix Bag 1 BAG IV ONE (10:08)
[2023-01-10] MEDS: Cefepime 2 GM in Sodium Chloride 0.9% 50 ML IV SCH ×3 (01:30→17:21)
[2023-01-10] MEDS: Loperamide 2 MG Cap PO PRN ×4 (02:50→22:22)
[2023-01-10] MEDS: Sodium Chloride 0.9% 1,000 ML IV SCH ×3 (05:00→22:22)
[2023-01-10] MEDS: Pantoprazole 40 MG Tab.CR PO SCH (06:36)
[2023-01-10] MEDS: Phosphorus #1 250 MG Tab PO SCH ×3 (06:36→17:22)
[2023-01-10] MEDS: Levothyroxine 75 MCG Tab PO SCH (06:36)
[2023-01-10 06:53] LABS: HEMATOCRIT 28.9 % (36.0-46.0); HEMOGLOBIN 9.4 g/dL (12.0-16.0); MEAN CORPUSCULAR HEMOGLOBIN 30.4 pg (27.0-32.0); MEAN CORPUSCULAR HGB CONC 32.5 g/dL (31.0-37.0); MEAN CORPUSCULAR VOLUME 93.5 fL (80.0-98.0); NRBC ABSOLUTE 0 K/uL; RED BLOOD CELL COUNT 3.09 M/uL (4.30-5.90)
[2023-01-10 07:08] LABS: A/G RATIO 0.6 (0.9-1.6); ALBUMIN 1.8 g/dL (3.4-5.0); BILIRUBIN TOTAL 0.4 mg/dL (0.2-1.0); CARBON DIOXIDE,CO2 19.2 mmol/L (21.0-32.0); CREATININE 0.5 mg/dL (0.6-1.0); EST CRCL DRUG DOSING (CG) 94.28 mL/min; MAGNESIUM 1.8 mg/dL (1.8-2.4); PHOSPHORUS 1.9 mg/dL (2.6-4.7); POTASSIUM,K 3.5 mmol/L (3.5-5.1); PROTEIN TOTAL,TP 4.8 g/dL (6.4-8.2)
[2023-01-10 07:25] LABS: PLATELET COUNT,PLT 54 K/uL (150-400)
[2023-01-10 07:26] LABS: BAND ABSOLUTE MAN 0; BAND PERCENT MAN 1 %; EOSINOPHILS PERCENT MAN 1 % (0.0-7.0); LYMPHOCYTES ABSOLUTE MAN 1.1 (0.6-2.4); LYMPHOCYTES PERCENT MAN 74 % (16.0-40.0); MONOCYTES ABSOLUTE MAN 0.1 (0.0-0.8); MONOCYTES PERCENT MAN 4 % (0.0-15.0); SEG NEUTROPHILS ABSOLUTE MAN 0.3 (1.4-5.7); SEG NEUTROPHILS PERCENT MAN 20 % (48.0-80.0)
[2023-01-10] MEDS ORDERED: Potassium Phosphates 3 mMole/ML 15 ML SDV IV ONE (08:30)
[2023-01-10] MEDS ORDERED: Potassium Phosphates 30 MMOLE in Sodium Chloride 0.9% 500 ML IV ONE (08:45)
[2023-01-10] MEDS ORDERED: Sodium Phosphate 15 mMole/5 ML SDV IV STA (08:51)
[2023-01-10 17:28] LABS: CALCIUM 7.2 mg/dL (8.5-10.1); CARBON DIOXIDE,CO2 20.3 mmol/L (21.0-32.0); CREATININE 0.5 mg/dL (0.6-1.0); EST CRCL DRUG DOSING (CG) 94.28 mL/min; POTASSIUM,K 4.1 mmol/L (3.5-5.1)
[2023-01-10] MEDS ORDERED: Sodium Chloride 0.9% 250 ML ONE (23:59)
[2023-01-11] MEDS: Phosphorus #1 250 MG Tab PO SCH ×3 (00:09→12:43)
[2023-01-11] MEDS: Cefepime 2 GM in Sodium Chloride 0.9% 50 ML IV SCH ×2 (01:37→11:05)
[2023-01-11 06:23] LABS: HEMATOCRIT 29.5 % (36.0-46.0); HEMOGLOBIN 9.7 g/dL (12.0-16.0); MEAN CORPUSCULAR HEMOGLOBIN 30.4 pg (27.0-32.0); MEAN CORPUSCULAR HGB CONC 32.9 g/dL (31.0-37.0); MEAN CORPUSCULAR VOLUME 92.5 fL (80.0-98.0); NRBC ABSOLUTE 0 K/uL; RED BLOOD CELL COUNT 3.19 M/uL (4.30-5.90); WHITE BLOOD CELL COUNT,WBC 1.44 K/uL (4.0-11.0)
[2023-01-11] MEDS: Levothyroxine 75 MCG Tab PO SCH (06:31)
[2023-01-11] MEDS: Pantoprazole 40 MG Tab.CR PO SCH (06:31)
[2023-01-11 06:39] LABS: CALCIUM 7.4 mg/dL (8.5-10.1); CARBON DIOXIDE,CO2 22.3 mmol/L (21.0-32.0); CREATININE 0.6 mg/dL (0.6-1.0); EST CRCL DRUG DOSING (CG) 78.57 mL/min; MAGNESIUM 1.6 mg/dL (1.8-2.4); PHOSPHORUS 2.3 mg/dL (2.6-4.7); POTASSIUM,K 3.8 mmol/L (3.5-5.1)
[2023-01-11 06:44] LABS: PLATELET COUNT,PLT 38 K/uL (150-400)
[2023-01-11 06:46] LABS: BAND ABSOLUTE MAN 0; BAND PERCENT MAN 1 %; BASOPHILS PERCENT MAN 2 % (0.0-1.5); EOSINOPHILS PERCENT MAN 2 % (0.0-7.0); LYMPHOCYTES ABSOLUTE MAN 1.1 (0.6-2.4); LYMPHOCYTES PERCENT MAN 75 % (16.0-40.0)
[2023-01-11 06:47] LABS: SEG NEUTROPHILS ABSOLUTE MAN 0.2 (1.4-5.7); SEG NEUTROPHILS PERCENT MAN 15 % (48.0-80.0)
[2023-01-11 06:48] LABS: METAMYELOCYTE ABSOLUTE MAN 0; METAMYELOCYTE PERCENT MAN 1 %; MONOCYTES ABSOLUTE MAN 0.1 (0.0-0.8); MONOCYTES PERCENT MAN 4 % (0.0-15.0)
[2023-01-11] MEDS: Sodium Chloride 0.9% 1,000 ML IV SCH (07:44)
[2023-01-11] MEDS: Loperamide 2 MG Cap PO PRN ×2 (07:46→13:12)
[2023-01-11] MEDS: Potassium Chloride 10 MEQ Tab.ER PO SCH ×2 (08:43→12:55)
== END 2023-01-11 13:40 | disposition home or self-care (01) | DRG 641 ==
LOC: MW.ED 17:18 → MW.ICU 23:39 → MW.MS 01-10 14:45
PROVIDERS: ADMIT Internal Medicine; ATTEND Internal Medicine
PROC: 3E033XZ Introduction of Vasopressor into Peripheral Vein, Percutaneous Approach (ICD-10-PCS; principal; 2023-01-09)
DX: E87.6 Hypokalemia (principal); E87.1 Hypo-osmolality and hyponatremia; I95.2 Hypotension due to drugs; E83.42 Hypomagnesemia; C25.0 Malignant neoplasm of head of pancreas; T45.1X5A Adverse effect of antineoplastic and immunosuppressive drugs, initial encounter; E86.0 Dehydration; Z20.822 Contact with and (suspected) exposure to COVID-19; D69.6 Thrombocytopenia, unspecified; I10 Essential (primary) hypertension; M19.90 Unspecified osteoarthritis, unspecified site; E86.9 Volume depletion, unspecified; E03.9 Hypothyroidism, unspecified; Z98.890 Other specified postprocedural states; Z79.899 Other long term (current) drug therapy; Z79.890 Hormone replacement therapy; Z87.891 Personal history of nicotine dependence
CPT/HCPCS: 36415; 71045; 71275; 74177; 80053; 81003; 82009; 82803; 83605; 83690; 83735; 83880; 84484; 85025; 87040 ×2; 93005; 96361; 96365; 96366; 96367; 96376; 99285; A9270; J3475; J3480 ×2; J3490; J7030 ×2; Q9967; 80048; 80202; 82330; 82947; 84100; 84132; 87324; 93010; 93306; 99222; 99231; 99232; 99239; 99284; J0692; J1642; J1644; J3370; J7040; J7050; U0002

== ENCOUNTER 2023-01-31 10:09 | Emergency (ER) | payer MEDICARE ==
[2023-01-31 10:35] LABS: APPEARANCE,URINE CLOUDY; BILIRUBIN,URINE NEGATIVE (NEGATIVE); COLOR,URINE YELLOW; GLUCOSE,URINE NEGATIVE (NEGATIVE); KETONES,URINE NEGATIVE (NEGATIVE); LEUKOCYTE ESTERASE,URINE TRACE (NEGATIVE); NITRITE,URINE NEGATIVE (NEGATIVE); OCCULT BLOOD,URINE SMALL (NEGATIVE); PROTEIN,URINE 30 mg/dL (NEGATIVE); UROBILINOGEN,URINE 0.2 EU/dL (<2.0)
[2023-01-31 10:48] LABS: BACTERIA,URINE 4+ (NEGATIVE); EPITHELIAL CELLS,URINE FEW (NONE-FEW); WBC,URINE 80-90 (0-5/HPF)
[2023-01-31] MEDS ORDERED: cefTRIAXone 1 GM Vial IM ONE (10:54)
[2023-01-31] MEDS ORDERED: Lidocaine 1% PF 2 ML SDV INJECT ONE (10:55)
== END 2023-01-31 11:36 | disposition home or self-care (01) ==
LOC: MW.ED 10:09
DX: N39.0 Urinary tract infection, site not specified (principal); I10 Essential (primary) hypertension; M19.90 Unspecified osteoarthritis, unspecified site; E03.9 Hypothyroidism, unspecified; Z79.899 Other long term (current) drug therapy
CPT/HCPCS: 81001; 87086; 96372; 99283; J0696; 87088; 87186; J3490

== ENCOUNTER 2023-02-23 19:13 | Emergency (ER) | payer MEDICARE ==
[2023-02-23] MEDS ORDERED: Sodium Chloride 0.9% 500 ML IV ONE (19:47)
[2023-02-23 19:48] LABS: HEMATOCRIT 24.1 % (36.0-46.0); HEMOGLOBIN 7.8 g/dL (12.0-16.0); MEAN CORPUSCULAR HEMOGLOBIN 30.4 pg (27.0-32.0); MEAN CORPUSCULAR HGB CONC 32.4 g/dL (31.0-37.0); MEAN CORPUSCULAR VOLUME 93.8 fL (80.0-98.0); NRBC ABSOLUTE 0 K/uL; RED BLOOD CELL COUNT 2.57 M/uL (4.30-5.90)
[2023-02-23 19:56] LABS: A/G RATIO 0.8 (0.9-1.6); ALBUMIN 2.5 g/dL (3.4-5.0); BILIRUBIN TOTAL 0.5 mg/dL (0.2-1.0); CALCIUM 7.9 mg/dL (8.5-10.1); CARBON DIOXIDE,CO2 24.5 mmol/L (21.0-32.0); CREATININE 0.6 mg/dL (0.6-1.0); EST CRCL DRUG DOSING (CG) 78.57 mL/min; MAGNESIUM 1.7 mg/dL (1.8-2.4); POTASSIUM,K 3.4 mmol/L (3.5-5.1); PROTEIN TOTAL,TP 5.7 g/dL (6.4-8.2)
[2023-02-23] MEDS ORDERED: Magnesium Oxide 400 MG Tab PO ONE (20:12)
[2023-02-23] MEDS ORDERED: Potassium Chloride 20 MEQ Tab.ER PO ONE (20:12)
[2023-02-23 20:22] LABS: BAND ABSOLUTE MAN 0.4; BAND PERCENT MAN 15 %; PLATELET COUNT,PLT 33 K/uL (150-400); SEG NEUTROPHILS ABSOLUTE MAN 1.4 (1.4-5.7); SEG NEUTROPHILS PERCENT MAN 52 % (48.0-80.0)
[2023-02-23 20:23] LABS: EOSINOPHILS PERCENT MAN 1 % (0.0-7.0); LYMPHOCYTES ABSOLUTE MAN 0.8 (0.6-2.4); LYMPHOCYTES PERCENT MAN 29 % (16.0-40.0); METAMYELOCYTE ABSOLUTE MAN 0; METAMYELOCYTE PERCENT MAN 1 %; MONOCYTES ABSOLUTE MAN 0.1 (0.0-0.8); MONOCYTES PERCENT MAN 2 % (0.0-15.0)
== END 2023-02-23 20:55 | disposition home or self-care (01) ==
LOC: MW.ED 19:13
DX: R55 Syncope and collapse (principal); I10 Essential (primary) hypertension
CPT/HCPCS: 36415; 80053; 83735; 84484; 85025; 93005; 96360; 99284; A9270; J7030; 93010; 99283

== ENCOUNTER 2023-10-24 09:00 | Emergency (ER) | payer MEDICARE | END 2023-10-24 12:40 | disposition home or self-care (01) | LOC: MW.ED 09:00 | DX: Z48.01 Encounter for change or removal of surgical wound dressing (principal); I10 Essential (primary) hypertension; J44.9 Chronic obstructive pulmonary disease, unspecified; E03.9 Hypothyroidism, unspecified; Z79.899 Other long term (current) drug therapy; Z75.8 Other problems related to medical facilities and other health care | CPT/HCPCS: 99281; 99283 ==